=== PATIENT | male | born 1995 | race Caucasian/White ===

== ENCOUNTER 2018-07-16 00:04 | Observation (INO) | payer MEDICAID, OTHER ==
[~2018-07-16] VITALS: Ht 177.8 cm; Wt 64.0 kg
[2018-07-16 01:07] LABS: BASOPHILS # (AUTO) 0.04 x10^3/uL (0-0.1); BASOPHILS % (AUTO) 1 % (0-1); EOSINOPHILS # (AUTO) 0.13 x10^3/uL (0-0.4); EOSINOPHILS % (AUTO) 2 % (1-7); LYMPHOCYTES # (AUTO) 2.08 x10^3/uL (1-3.4); LYMPHOCYTES % (AUTO) 34 % (22-44); MD NO; MEAN CORPUSCULAR HEMOGLOBIN 32.2 pg (27.5-34.5); MEAN CORPUSCULAR HGB CONC 34.3 g/dL (33.2-36.2); MEAN CORPUSCULAR VOLUME 93.8 fL (81-97); MEAN PLATELET VOLUME 8.5 fL (7.4-10.4); MONOCYTES # (AUTO) 0.53 x10^3/uL (0.2-0.8); MONOCYTES % (AUTO) 9 % (2-9); NEUTROPHILS # (AUTO) 3.31 x10^3/uL (1.8-6.8); NEUTROPHILS % (AUTO) 54 % (42-75); PLATELET COUNT 278 x10^3/uL (130-400); RED BLOOD COUNT 4.55 x10^6/uL (4.38-5.82); RED CELL DISTRIBUTION WIDTH 13.8 % (9.4-14.8)
[2018-07-16 01:11] LABS: ALANINE AMINOTRANSFERASE 22 U/L (12-78); ALBUMIN 3.9 g/dL (3.4-5.0); ANION GAP 6 mmol/L (5-15); CALCIUM 8.7 mg/dL (8.5-10.1); CHLORIDE 108 mmol/L (98-107); CREATININE 1.05 mg/dL (0.7-1.3); SALICYLATE LEVEL 2.4 mg/dL (2.8-20.0)
[2018-07-16 01:13] LABS: ALKALINE PHOSPHATASE 91 U/L (45-117); BILIRUBIN,TOTAL 0.5 mg/dL (0.2-1.0); TOTAL PROTEIN 7.2 g/dL (6.4-8.2)
[2018-07-16 01:19] LABS: ACETAMINOPHEN < 2 mcg/mL (10-30)
[2018-07-16 01:36] LABS: AMPHETAMINE SCREEN, URINE Negative (Negative); BARBITURATE SCREEN, URINE Negative (Negative); BENZODIAZEPINE SCREEN, URINE Positive (Negative); CANNABINOID SCREEN, URINE Positive (Negative); COCAINE SCREEN, URINE Negative (Negative); METHADONE SCREEN, URINE Negative (Negative); OPIATE SCREEN, URINE Positive (Negative)
[2018-07-16] MEDS ORDERED: LORazepam 2 MG/ML, 1ML IM PRN (06:00)
[2018-07-16] MEDS ORDERED: ACETAMINOPHEN 325 MG TABLET PO PRN (06:00)
[2018-07-16] MEDS ORDERED: DOCUSATE 100 MG CAPSULE PO PRN (06:00)
[2018-07-16] MEDS ORDERED: LORazepam 1MG TABLET ONE (16:05)
[2018-07-16] MEDS: LORazepam 1MG TABLET PO PRN (16:07)
[2018-07-17] MEDS ORDERED: LORazepam 1MG TABLET ONE ×2 (11:19→18:48)
[2018-07-17] MEDS: LORazepam 1MG TABLET PO PRN ×2 (11:20→18:48)
[2018-07-18 17:54] VITALS: BP 133/94
[2018-07-18 19:24] VITALS: BP 146/82
[2018-07-19 08:20] VITALS: BP 144/79
[2018-07-19] MEDS: LORazepam 1MG TABLET PO PRN (19:24)
[2018-07-19 19:33] VITALS: BP 147/91
[2018-07-20 07:48] VITALS: BP 122/78
[2018-07-20] MEDS: LORazepam 1MG TABLET PO PRN (08:25)
== END 2018-07-20 10:50 | disposition home or self-care (01) ==
LOC: ED 01:09 → INTOOBSV 02:02 → UNDOADMOB 02:02 → EDIP 02:02 → 2N 07-18 17:34
PROVIDERS: ADMIT Internal Medicine; ATTEND Internal Medicine
DX: R45.851 Suicidal ideations (principal); F32.9 Major depressive disorder, single episode, unspecified; F13.10 Sedative, hypnotic or anxiolytic abuse, uncomplicated; F12.10 Cannabis abuse, uncomplicated; F41.9 Anxiety disorder, unspecified
CPT/HCPCS: 36415; 80053; 80307; 80329; 85025; 99285; G0378; G0480